=== PATIENT | male | born 1995 | race African-American/Black ===

== ENCOUNTER 2018-11-08 17:22 | Emergency (ER) | payer SELFPAY ==
[2018-11-08 17:41] VITALS: BP 133/82
[2018-11-08] MEDS ORDERED: ACETAMINOPHEN 325 MG TABLET PO ONE (18:12)
[2018-11-08] MEDS ORDERED: IBUPROFEN 600 MG TABLET PO ONE (18:12)
--- NOTE | 2018-11-08 18:35 | RADIOLOGY REPORT (SQ) ---
EXAM DESCRIPTION: WRIST LEFT 3 VIEWS COMPLETED DATE/TIME: 11/08/2018 6:25 pm REASON FOR STUDY: trauma COMPARISON: None. NUMBER OF VIEWS: Three views. TECHNIQUE: AP, lateral, and oblique radiographic images acquired of the left wrist. LIMITATIONS: None. FINDINGS: MINERALIZATION: Normal. BONES: No acute fracture or dislocation. No worrisome bone lesions. Normal alignment. SOFT TISSUES: No soft tissue swelling. No foreign body. OTHER: No other significant finding. IMPRESSION: NEGATIVE STUDY OF THE LEFT WRIST. NO RADIOGRAPHIC EVIDENCE OF ACUTE INJURY. TECHNICAL DOCUMENTATION: JOB ID: [id number] [employer]- All Rights Reserved Reading location - IP/workstation name: [email or web address]
--- NOTE | 2018-11-08 18:35 | RADIOLOGY REPORT (SQ) ---
EXAM DESCRIPTION: HAND LEFT 3 VIEWS COMPLETED DATE/TIME: 11/08/2018 6:25 pm REASON FOR STUDY: trauma COMPARISON: None. EXAM PARAMETERS: NUMBER OF VIEWS: Three views. TECHNIQUE: AP, lateral and oblique radiographic images acquired of the left hand. LIMITATIONS: None. FINDINGS: MINERALIZATION: Normal. BONES: No acute fracture or dislocation. No worrisome bone lesions. JOINTS: No effusions. SOFT TISSUES: No soft tissue swelling. No foreign body. OTHER: No other significant finding. IMPRESSION: NEGATIVE STUDY OF THE LEFT HAND. NO RADIOGRAPHIC EVIDENCE OF ACUTE INJURY. TECHNICAL DOCUMENTATION: JOB ID: [id number] [employer]- All Rights Reserved Reading location - IP/workstation name: [email or web address]
--- NOTE | 2018-11-08 19:04 | ER Document Report ---
HPI - HPI Time Seen by Provider: 11/08/18 17:42 Pain Level: 4 Context: Patient is a 22-year-old male who presents the emergency department with left hand pain. He was playing with his friend and got his left hand slammed in the door twice. The patient is right-handed. This incident happened about 30 minutes prior to arrival. Denies any past medical history. He does not take any medications. - CONSTITUTIONAL Constitutional: DENIES: Fever, Chills - EENT EENT: DENIES: Sore Throat - NEURO Neurology: DENIES: Headache - CARDIOVASCULAR Cardiovascular: DENIES: Chest pain - RESPIRATORY Respiratory: DENIES: Coughing - REPRODUCTIVE Reproductive: DENIES: : - MUSCULOSKELETAL Musculoskeletal: REPORTS: Extremity pain - Left hand/wrist, Swelling - Left hand/wrist. DENIES: Back Pain, Neck Pain - DERM Skin Color: Normal Skin Problems: None Past Medical History - General Information source: Patient - Social History Smoking Status: Current Every Day Smoker Chew tobacco use (# tins/day): No Frequency of alcohol use: Occasional Drug Abuse: None Family History: None Patient has suicidal ideation: No Patient has homicidal ideation: No Renal/ Medical History: Denies: Hx Peritoneal Dialysis Psychiatric Medical History: Reports: Hx Depression - Immunizations Immunizations up to date: Yes Hx Diphtheria, Pertussis, Tetanus Vaccination: Yes Vertical Provider Document - CONSTITUTIONAL Agree With Documented VS: Yes Exam Limitations: No Limitations General Appearance: No Apparent Distress - INFECTION CONTROL TRAVEL OUTSIDE OF THE [place] IN LAST 30 DAYS: No - HEENT HEENT: Atraumatic, Normocephalic, PERRLA - NECK Neck: Normal Inspection - RESPIRATORY Respiratory: Breath Sounds Normal, No Respiratory Distress - CARDIOVASCULAR Cardiovascular: Regular Rate, Regular Rhythm Pulses: Normal: Radial - MUSCULOSKELETAL/EXTREMETIES Musculoskeletal/Extremeties: Tender - Left hand at second, third, and fourth metacarpals and wrist, Edema - Left hand/wrist, Eccymosis - Mild, left hand and wrist. negative: FROM - Decreased range of motion to left wrist and hand - NEURO Level of Consciousness: Awake, Alert, Appropriate - DERM Integumentary: Warm, Dry, No Rash Course - Re-evaluation Re-evalutation: 11/08/18 19:05 There are no fractures noted on patient's x-rays. Vascular compromise noted. Capillary refill less than 3 seconds. Patient is able to flex and extend his digits with no problem. I do not suspect a tendon rupture. He will be sent home with an Jagdeep wrap and splint. Follow-up precautions were given. He is to take ibuprofen and Tylenol for pain relief. He will follow-up with his primary care provider. Verbal discharge instructions were given to the patient. They verbalized understanding. They are stable for discharge. - Vital Signs Vital signs: Temp Pulse Resp BP Pulse Ox 99.3 F 57 L 16 133/82 H 97 11/08/18 17:40 11/08/18 17:40 11/08/18 17:40 11/08/18 17:40 11/08/18 17:40 Procedures - Immobilization Left Hand Pre-Proc Neuro Vasc Exam: Normal Immobilizer type: Jagdeep wrap Performed by: PCT Post-Proc Neuro Vasc Exam: Normal, Unchanged from pre-exam Alignment checked and good: Yes Discharge - Discharge Clinical Impression: Contusion of left hand Qualifiers: Encounter type: initial encounter Qualified Code(s): S60.222A - Contusion of left hand, initial encounter Condition: Stable Disposition: HOME, SELF-CARE Additional Instructions: You were seen today in the emergency department for an injury to your left hand. There is no fractures on your x-ray. If you continue to have pain 1 to 2 weeks after today, please follow-up with your primary care provider to have your hand re-x-rayed. Please take Tylenol 1000 mg and ibuprofen 600 mg every 6 hours for your pain. Please rest your hand, wear an Jagdeep wrap, apply ice (20 minutes on, 20 minutes off), and elevate your wrist to help with any swelling.
== END 2018-11-08 19:57 | disposition home or self-care (01) ==
LOC: ER 17:22
DX: S60.222A Contusion of left hand, initial encounter (principal); S60.212A Contusion of left wrist, initial encounter; W23.0XXA Caught, crushed, jammed, or pinched between moving objects, initial encounter; F17.200 Nicotine dependence, unspecified, uncomplicated
CPT/HCPCS: 99283

== ENCOUNTER 2018-11-09 18:13 | Emergency (ER) | payer SELFPAY ==
[2018-11-09 18:56] VITALS: BP 138/76
--- NOTE | 2018-11-09 20:18 | ER Document Report ---
Addendum entered and electronically signed by VINAY NORWOOD FNP 11/12/18 20:58: Procedures - Immobilization Left Hand Pre-Proc Neuro Vasc Exam: Normal Immobilizer type: Other - Dorsal hand splint Performed by: PCT Post-Proc Neuro Vasc Exam: Normal, Unchanged from pre-exam Alignment checked and good: Yes Original Note: HPI - HPI Time Seen by Provider: 11/09/18 19:57 Pain Level: 3 Context: Patient is a 22-year-old male who presents the emergency department with left hand pain. He was playing with his friend and got his left hand slammed in the door twice. This happened yesterday the patient is right-handed. The patient was seen yesterday here in the emergency, and was placed in an Jagdeep wrap. The patient states that he continues to have pain, and is worried that it is broken. He has not taken any ibuprofen or Tylenol since last night. Patient states that he accidentally banged his left hand on a door today. He is requesting x- rays again. - CONSTITUTIONAL Constitutional: DENIES: Fever, Chills - EENT EENT: DENIES: Sore Throat - NEURO Neurology: DENIES: Headache - CARDIOVASCULAR Cardiovascular: DENIES: Chest pain - RESPIRATORY Respiratory: DENIES: Trouble Breathing - GASTROINTESTINAL Gastrointestinal: DENIES: Abdominal Pain - MUSCULOSKELETAL Musculoskeletal: REPORTS: Extremity pain - Left hand - DERM Skin Color: Normal Skin Problems: None Past Medical History - Social History Smoking Status: Never Smoker Family History: None Patient has suicidal ideation: No Patient has homicidal ideation: No Renal/ Medical History: Denies: Hx Peritoneal Dialysis Psychiatric Medical History: Reports: Hx Depression - Immunizations Immunizations up to date: Yes Hx Diphtheria, Pertussis, Tetanus Vaccination: Yes Vertical Provider Document - CONSTITUTIONAL Agree With Documented VS: Yes Exam Limitations: No Limitations General Appearance: No Apparent Distress - INFECTION CONTROL TRAVEL OUTSIDE OF THE [place] IN LAST 30 DAYS: No - HEENT HEENT: Atraumatic, Normocephalic, PERRLA - RESPIRATORY Respiratory: Breath Sounds Normal, No Respiratory Distress - CARDIOVASCULAR Cardiovascular: Regular Rate, Regular Rhythm Pulses: Normal: Radial - MUSCULOSKELETAL/EXTREMETIES Musculoskeletal/Extremeties: Tender - Left dorsal aspect of hand, Edema - Left hand, Eccymosis - Left hand. negative: FROM - Decreased due to injury - NEURO Level of Consciousness: Awake, Alert, Appropriate Motor/Sensory: No Motor Deficit, No Sensory Deficit - DERM Integumentary: Warm, Dry, No Rash Course - Re-evaluation Re-evalutation: 11/09/18 The patient does not have any health insurance and although he is requesting another x-ray, I explained to the patient that x-rays may not show a fracture at this time, as the patient just had the injury yesterday. I also explained to the patient that since he does not have insurance, I would do not want him to go into financial debt from having a repeat x-rays. The patient also has not taken any ibuprofen and Tylenol. I educated the patient on ibuprofen and Tylenol use for injuries. A splint will be placed on the dorsal aspect of the patient's left hand to help protect his hand from any injuries. He is in agreement with this plan. I still do not suspect the patient has a tendon rupture, or any life-threatening etiology at this time. I have explained to him that he needs to follow-up with orthopedics if his pain is not better in 2 weeks. Verbal discharge instructions were given to the patient. They verbalized understanding. They are stable for discharge. - Vital Signs Vital signs: Temp Pulse Resp BP Pulse Ox 98.4 F 61 16 138/76 H 100 11/09/18 18:55 11/09/18 18:55 11/09/18 18:55 11/09/18 18:55 11/09/18 18:55 Discharge - Discharge Clinical Impression: Left hand pain Condition: Stable Disposition: HOME, SELF-CARE Additional Instructions: You were seen today in the emergency department for left hand pain. Please, please, please take ibuprofen 600 mg and acetaminophen 1000 mg every 6 hours for your pain. This will help you with the swelling. You have also been placed in a splint. Please wear the splint to help protect her hand. Please rest your hand, elevate it above your head, and apply ice (20 minutes on, 20 minutes off) as needed. If you still have pain in your left hand in 2 weeks, please follow- up with orthopedics. Referrals: BRITTANI STAFFORD DO [ACTIVE STAFF] - 11/23/18
== END 2018-11-09 20:33 | disposition home or self-care (01) ==
LOC: ER 18:13
DX: M79.642 Pain in left hand (principal)
CPT/HCPCS: 99282

== ENCOUNTER 2018-11-15 11:29 | Emergency (ER) | payer SELFPAY ==
[2018-11-15 11:32] VITALS: BP 145/74
--- NOTE | 2018-11-15 12:57 | ER Document Report ---
HPI - HPI Patient complains to provider of: left hand pain Time Seen by Provider: 11/15/18 12:38 Onset: Last week Onset/Duration: Sudden Quality of pain: Achy Severity: Mild Pain Level: 1 Context: Patient presents to the emergency department with complaints of left hand pain. Patient reports that last week he slammed his left hand in a car door. He was evaluated for injury here but the x-ray was negative. He reports he was instructed to return here this next week for recheck re-x-ray if it still hurting him. He reports he still having pain. No other complaints such as fever vomiting diarrhea. Associated Symptoms: None Exacerbated by: Denies Relieved by: Denies Similar symptoms previously: Yes Recently seen / treated by doctor: Yes - REPRODUCTIVE Reproductive: DENIES: : Past Medical History - General Information source: Patient - Social History Smoking Status: Unknown if Ever Smoked Family History: None Patient has suicidal ideation: No Patient has homicidal ideation: No Renal/ Medical History: Denies: Hx Peritoneal Dialysis Psychiatric Medical History: Reports: Hx Depression - Immunizations Immunizations up to date: Yes Hx Diphtheria, Pertussis, Tetanus Vaccination: Yes Vertical Provider Document - CONSTITUTIONAL Agree With Documented VS: Yes - INFECTION CONTROL TRAVEL OUTSIDE OF THE [place] IN LAST 30 DAYS: No - HEENT HEENT: Atraumatic, Normocephalic - NECK Neck: Supple - MUSCULOSKELETAL/EXTREMETIES Musculoskeletal/Extremeties: MAEW, FROM, Tender - patient reports pain across the left hand dorsally to 2-3 4 metacarpals. No obvious deformity no swelling good cap refill good radial pulse also complains of pain to his palm in the same area. - NEURO Level of Consciousness: Awake, Alert, Appropriate Motor/Sensory: No Motor Deficit - DERM Integumentary: Warm, Dry Adult Front & Back Diagram: 1 - reports pain dorsally and palm to 2-4 metacarpals. Course - Re-evaluation Re-evalutation: 11/15/18 19:10 Patient was instructed on negative x-ray. Patient was instructed on crush injuries. Instructed to follow-up with orthopedics for continued pain he verbalized understanding to all instructions. - Vital Signs Vital signs: Temp Pulse Resp BP Pulse Ox 98.1 F 56 L 16 145/74 H 99 11/15/18 11:31 11/15/18 11:31 11/15/18 11:31 11/15/18 11:31 11/15/18 11:31 - Diagnostic Test Radiology reviewed: Image reviewed, Reports reviewed - EXAM DESCRIPTION: HAND LEFT 3 VIEWS COMPLETED DATE/TIME: 11/15/2018 1:42 pm REASON FOR STUDY: pain,recheck from recent xray crush injury COMPARISON: 11/08/2018 EXAM PARAMETERS: NUMBER OF VIEWS: Three views. TECHNIQUE: AP, lateral and oblique radiographic images acquired of the left hand. LIMITATIONS: None. FINDINGS: MINERALIZATION: Normal. BONES: No acute fracture or dislocation. No worrisome bone lesions. JOINTS: No effusions. SOFT TISSUES: No soft tissue swelling. No foreign body. OTHER: No other significant finding. IMPRESSION: NEGATIVE STUDY OF THE LEFT HAND. NO RADIOGRAPHIC EVIDENCE OF ACUTE INJURY. COMMENT: Please note: 2 of the images are marked right, but as they are displayed they appear to represent the left hand. Discharge - Discharge Clinical Impression: Crushing injury of left hand Qualifiers: Encounter type: subsequent encounter Qualified Code(s): S67.22XD - Crushing injury of left hand, subsequent encounter Condition: Stable Disposition: HOME, SELF-CARE Instructions: Crush Injury ([facility]), Use of [facility] Ibuprofen ([facility]) Additional Instructions: *You have been evaluated for left hand pain, crush injury *The x-ray of your hand did not show an acute injury *Rest/Ice/Elevate your hand *take ibuprofen as indicated *Follow up with orthopedics this week for evaluation *Return to ED for worsening condition, changes, needs Forms: Elevated Blood Pressure Referrals: [facility] [Provider Group] - Follow up in 3-5 days MAYRA CHEUNG MD [ASSOCIATE] - Follow up in 3-5 days
--- NOTE | 2018-11-15 13:53 | RADIOLOGY REPORT (SQ) ---
EXAM DESCRIPTION: HAND LEFT 3 VIEWS COMPLETED DATE/TIME: 11/15/2018 1:42 pm REASON FOR STUDY: pain,recheck from recent xray crush injury COMPARISON: 11/08/2018 EXAM PARAMETERS: NUMBER OF VIEWS: Three views. TECHNIQUE: AP, lateral and oblique radiographic images acquired of the left hand. LIMITATIONS: None. FINDINGS: MINERALIZATION: Normal. BONES: No acute fracture or dislocation. No worrisome bone lesions. JOINTS: No effusions. SOFT TISSUES: No soft tissue swelling. No foreign body. OTHER: No other significant finding. IMPRESSION: NEGATIVE STUDY OF THE LEFT HAND. NO RADIOGRAPHIC EVIDENCE OF ACUTE INJURY. COMMENT: Please note: 2 of the images are marked right, but as they are displayed they appear to re present the left hand. TECHNICAL DOCUMENTATION: JOB ID: [id number] [employer]- All Rights Reserved Reading location - IP/workstation name: [email or web address]
== END 2018-11-15 14:19 | disposition home or self-care (01) ==
LOC: ER 11:29
DX: S67.22XD Crushing injury of left hand, subsequent encounter (principal); M79.642 Pain in left hand; W23.0XXD Caught, crushed, jammed, or pinched between moving objects, subsequent encounter
CPT/HCPCS: 99283

== ENCOUNTER 2019-01-18 06:36 | Emergency (ER) | payer SELFPAY ==
[2019-01-18 06:48] VITALS: BP 134/64
--- NOTE | 2019-01-18 06:58 | ER Document Report ---
ED General - General Chief Complaint: Eye Problem Stated Complaint: VOMITING Time Seen by Provider: 01/18/19 06:48 Notes: 23-year-old male comes in with vague complaints. Patient stated that his eye felt scratchy the last 2 days he really has not noticed much redness. Denies nasal congestion fever chills. States he throws up in the morning every now and then which is not abnormal for him but he states he saw some streaks of red the last 2 days. He denies any abdominal pain. Denies any falls or trauma. Patient states he needs a work note to be sure he does not have pinkeye. TRAVEL OUTSIDE OF THE [place] IN LAST 30 DAYS: No - Related Data Allergies/Adverse Reactions: Sulfa (Sulfonamide Antibiotics) Adverse Reaction (Verified 04/26/16 10:58) Hives Past Medical History - Social History Smoking Status: Unknown if Ever Smoked Family History: None Renal/ Medical History: Denies: Hx Peritoneal Dialysis Psychiatric Medical History: Reports: Hx Depression Past Surgical History: Reports: Hx Orthopedic Surgery - R elbow - Immunizations Immunizations up to date: Yes Hx Diphtheria, Pertussis, Tetanus Vaccination: Yes Review of Systems - Review of Systems Constitutional: denies: Chills, Fever EENT: Eye pain, Nose congestion Cardiovascular: denies: Chest pain, Dyspnea Respiratory: denies: Cough, Short of breath Gastrointestinal: Nausea, Vomiting Skin: denies: Rash -: Yes All other systems reviewed and negative Physical Exam - Vital signs Vitals: Temp Pulse Resp BP Pulse Ox 97.8 F 66 15 134/64 H 99 01/18/19 06:46 01/18/19 06:46 01/18/19 06:46 01/18/19 06:46 01/18/19 06:46 - Notes Notes: GENERAL_APPEARANCE: well_nourished, alert, cooperative, no_acute_distress, no_obvious_discomfort. VITALS: reviewed, see vital signs table. HEAD: no_swelling\tenderness on the head. EYES: PERRL, EOMI, conjunctiva_clear. NOSE: no_nasal_discharge. MOUTH: (-)decreased moisture. THROAT: no_tonsilar_inflammation, no_airway_obstruction. no_lymphadenopathy NECK: supple, no_neck_tenderness, (-)thyromegaly. BACK: no_back_tenderness. SKIN: warm, dry, good_color, no_rash. MENTAL_STATUS: speech_clear, oriented_X_3, normal_affect, responds_appropriately to questions. Course - Re-evaluation Re-evalutation: 01/18/19 06:56 23-year-old male who comes in complaining about his left eye. Honestly I do not see any conjunctival injection no Dacrocystitis. He does not wear contacts. He has good light reflex. He has no history of any injury here. The patient also complained of a few specks of what he described as bright red blood in emesis. He states he throws up often however the last couple days he usually throws up in the morning. The patient has a wide open Mallampati 1 airway. I did not see any signs of any bleeding in his nose or around his tonsils. However this may be the cause of some of this when he wakes up he states he has a lot of phlegm. And that that makes him vomit. I spoke with him about allergies he denies having any allergies. I spoke with the patient he may try an ghdl-[id number]-raymgbg antihistamine. However really do not believe he has any kind of pinkeye. His abdomen is soft and supple my exam no rebound or guarding nothing to suggest any kind of intra-abdominal pathology. I do not think any further screening is needed. - Vital Signs Vital signs: Temp Pulse Resp BP Pulse Ox 97.8 F 66 15 134/64 H 99 01/18/19 06:46 01/18/19 06:46 01/18/19 06:46 01/18/19 06:46 01/18/19 06:46 Discharge - Discharge Clinical Impression: Eye irritation Vomiting Qualifiers: Vomiting type: unspecified Nausea presence: with nausea Condition: Good Disposition: HOME, SELF-CARE Instructions: Vomiting ([facility]) Additional Instructions: On my exam you do not have pinkeye. This may just be generalized irritation. If it gets worse follow-up with your family doctor return to urgent care. Forms: Return to School
== END 2019-01-18 07:15 | disposition home or self-care (01) ==
LOC: ER 06:36
DX: H57.12 Ocular pain, left eye (principal); R11.2 Nausea with vomiting, unspecified; R09.81 Nasal congestion
CPT/HCPCS: 99283

== ENCOUNTER 2019-11-21 09:03 | Emergency (ER) | payer SELFPAY ==
[2019-11-21 09:10] VITALS: BP 153/81
--- NOTE | 2019-11-21 09:21 | ER Document Report ---
ED Medical Screen (RME) - General Chief Complaint: Testicular Pain Stated Complaint: ABDOMINAL PAIN Time Seen by Provider: 11/21/19 09:17 Mode of Arrival: Ambulatory Information source: Patient Notes: 23-year-old male presented to ED for complaint of scrotal pain pain for 4-week with no redness or swelling. 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 I have greeted and performed a rapid initial assessment of this patient. A comprehensive ED assessment and evaluation of the patient, analysis of test results and completion of medical decision making process will be conducted by an additional ED providers. TRAVEL OUTSIDE OF THE [place] IN LAST 30 DAYS: No - Related Data Allergies/Adverse Reactions: Sulfa (Sulfonamide Antibiotics) Adverse Reaction (Verified 04/26/16 10:58) Hives Past Medical History - Social History Frequency of alcohol use: Social Drug Abuse: None Renal/ Medical History: Denies: Hx Peritoneal Dialysis Psychiatric Medical History: Reports: Hx Depression Past Surgical History: Reports: Hx Orthopedic Surgery - R elbow - Immunizations Immunizations up to date: Yes Hx Diphtheria, Pertussis, Tetanus Vaccination: Yes Physical Exam - Vital signs Vitals: Temp Pulse Resp BP Pulse Ox 97.7 F 63 16 153/81 H 99 11/21/19 09:07 11/21/19 09:07 11/21/19 09:07 11/21/19 09:07 11/21/19 09:07 Course - Vital Signs Vital signs: Temp Pulse Resp BP Pulse Ox 97.7 F 63 16 153/81 H 99 11/21/19 09:10 11/21/19 09:07 11/21/19 09:07 11/21/19 09:07 11/21/19 09:07
[2019-11-21 09:40] LABS: APPEARANCE,URINE CLEAR; BILIRUBIN,URINE NEGATIVE (NEGATIVE); COLOR,URINE YELLOW; GLUCOSE, URINE NEGATIVE (NEGATIVE); KETONES,URINE NEGATIVE (NEGATIVE); LEUKOCYTE ESTERASE,URINE NEGATIVE (NEGATIVE); NITRITE,URINE NEGATIVE (NEGATIVE); PROTEIN,URINE NEGATIVE (NEGATIVE)
--- NOTE | 2019-11-21 10:42 | RADIOLOGY REPORT (SQ) ---
EXAM DESCRIPTION: U/S SCROTUM W/O DOPPLER IMAGES COMPLETED DATE/TIME: 11/21/2019 10:21 am REASON FOR STUDY: pain swelling COMPARISON: None. TECHNIQUE: Static and realtime santillan scale imaging of the scrotum and testes. Selected color Doppler and spectral images recorded to document blood flow. LIMITATIONS: None. FINDINGS: RIGHT: TESTICLE: Normal size. Normal echotexture. Normal blood flow. No mass. EPIDIDYMIS: Normal. HYDROCELE OR VARICOCELE: Minimal hydrocele. Small varicocele. HERNIA OR EXTRA-TESTICULAR MASS: No. LEFT: TESTICLE: Normal size. Normal echotexture. Normal blood flow. No mass. EPIDIDYMIS: Normal. HYDROCELE OR VARICOCELE: Minimal hydrocele. Small varicocele. HERNIA OR EXTRA-TESTICULAR MASS: No. OTHER: Scrotal wall thickening. IMPRESSION: 1. SCROTAL WALL THICKENING. MINIMAL HYDROCELES AND SMALL VARICOCELES. 2. NORMAL TESTICULAR ULTRASOUND. NO EVIDENCE OF TESTICULAR MASS OR TORSION. TECHNICAL DOCUMENTATION: JOB ID: [id number] 2010 [employer]- All Rights Reserved Reading location - IP/workstation name: [email or web address]
[2019-11-21 11:04] LABS: CHLAM PCR DETECTED (NOT DETECT)
--- NOTE | 2019-11-21 11:38 | ER Document Report ---
Entered by ISAK MCCONNELL SCRIBE 11/21/19 1054 Acting as scribe for:ADELA WOLFE MD ED General - General Chief Complaint: Testicular Pain Stated Complaint: ABDOMINAL PAIN Time Seen by Provider: 11/21/19 09:17 Mode of Arrival: Ambulatory Information source: Patient Notes: This 23-year-old male presents to the emergency department complaining of scrotum pain that started about a week ago. Patient explains that the pain could be one-sided and switch to the other side. Patient states that his pain is worse in the morning and after urination he feels better. Patient denies associated swelling or redness. Patient mentions that he has had chlamydia in the past and expresses that this pain is similar. Patient states that he is suspicious of STD due to unprotected sexual activity recently. Patient reports rhinorrhea due to allergies. Patient denies fever, chills, nausea, vomiting, covid-19 exposure and recent travel. TRAVEL OUTSIDE OF THE [place] IN LAST 30 DAYS: No - Related Data Allergies/Adverse Reactions: Sulfa (Sulfonamide Antibiotics) Adverse Reaction (Verified 04/26/16 10:58) Hives Past Medical History - General Information source: Patient - Social History Smoking Status: Current Every Day Smoker Cigarette use (# per day): Yes Chew tobacco use (# tins/day): No Frequency of alcohol use: Social Drug Abuse: None Family History: None Patient has homicidal ideation: No Psychiatric Medical History: Reports: Hx Depression Traumatic Medical History: Reports: Hx Fractures - Knee and both thumbs Past Surgical History: Reports: Hx Orthopedic Surgery - R elbow - Immunizations Immunizations up to date: Yes Hx Diphtheria, Pertussis, Tetanus Vaccination: Yes Review of Systems - Review of Systems Constitutional: See HPI. denies: Chills, Fever EENT: See HPI, Nose discharge. denies: Throat pain Cardiovascular: No symptoms reported Respiratory: No symptoms reported Gastrointestinal: See HPI. denies: Nausea, Vomiting Genitourinary: See HPI, Dysuria Male Genitourinary: See HPI, Testicular pain Musculoskeletal: No symptoms reported Skin: No symptoms reported Hematologic/Lymphatic: No symptoms reported Neurological/Psychological: No symptoms reported -: Yes All other systems reviewed and negative Physical Exam - Vital signs Vitals: Temp Pulse Resp BP Pulse Ox 97.7 F 63 16 153/81 H 99 11/21/19 09:07 11/21/19 09:07 11/21/19 09:07 11/21/19 09:07 11/21/19 09:07 - Notes Notes: Physical Exam: General: Alert, appears well. HEENT: Normocephalic. Atraumatic. PERRL. Extraocular movements intact. Oropharynx clear. Neck: Supple. Non-tender. Respiratory: No respiratory distress. Clear and equal breath sounds bilaterally. Cardiovascular: Regular rate and rhythm. Abdominal: Normal Inspection. Non-tender. No distension. Normal Bowel Sounds. Male Genitourinary: Normal. Non-tender. No signs of inguinal hernia or discharge. Circumcised. Back: No gross abnormalities. Extremities: Moves all four extremities. Upper extremities: Normal inspection. Normal ROM. Lower extremities: Normal inspection. No edema. Normal ROM. Neurological: Normal cognition. AAOx4. Normal speech. Psychological: Normal affect. Normal Mood. Skin: Warm. Dry. Normal color. Course - Re-evaluation Re-evalutation: 11/21/19 11:31 Patient resting comfortably showing no signs of distress. - Vital Signs Vital signs: Temp Pulse Resp BP Pulse Ox 97.7 F 63 16 153/81 H 99 11/21/19 09:10 11/21/19 09:07 11/21/19 09:07 11/21/19 09:07 11/21/19 09:07 11/21/19 11:31 Vital signs stable - Laboratory Laboratory results interpreted by ak: 11/21/19 11/21/19 09:20 09:20 Urine Urobilinogen 2.0 H Chlamydia DNA (PCR) DETECTED H 11/21/19 11:32 Urine lab results shows chlamydia detected. Gonorrhea negative. - Diagnostic Test Radiology reviewed: Image reviewed, Reports reviewed Radiology results interpreted by me: 11/21/19 11:32 Ultrasound scrotum scrotum disclose no acute process patient has a minimal small varicoceles hydroceles no other acute process noted. There was no torsion. Discharge - Discharge Clinical Impression: Chlamydia infection, Sexually transmitted disease in male Condition: Stable Disposition: HOME, SELF-CARE Additional Instructions: Chlamydia You have a chlamydia infection. Chlamydia is a germ that grows inside the cells of the mucous membranes. It often infects the eyes, urethra, and fallopian tubes. It can cause chronic pain and scar tissue if untreated. Antibiotics are used to treat chlamydia. It's important to take all the medicine even if there are no symptoms. Use condoms to prevent spread of the infection. Because this infection can spread by sexual contact, it's important that your sexual partner be checked before resuming sexual relations. A positive test for chlamydia has to be reported to the health department. Call the doctor or return at once if you develop increasing fever, rash, severe pelvic pain, vaginal bleeding (other than your period), or problems with your bladder or bowels. Prescriptions: Azithromycin [Zithromax 1 gm Susp Packet] 1 gm PO ONCE 1 Days #1 packet I personally performed the services described in the documentation, reviewed and edited the documentation which was dictated to the scribe in my presence, and it accurately records my words and actions.
== END 2019-11-21 11:50 | disposition home or self-care (01) ==
LOC: ER 09:03
DX: A56.8 Sexually transmitted chlamydial infection of other sites (principal); I86.1 Scrotal varices; N43.3 Hydrocele, unspecified; T78.40XA Allergy, unspecified, initial encounter; J34.89 Other specified disorders of nose and nasal sinuses; X58.XXXA Exposure to other specified factors, initial encounter; F17.210 Nicotine dependence, cigarettes, uncomplicated
CPT/HCPCS: 76870; 81001; 87086; 87491; 87591; 99284

== ENCOUNTER 2019-12-05 17:20 | Emergency (ER) | payer SELFPAY ==
--- NOTE | 2019-12-05 17:37 | ER Document Report ---
ED Hand/Wrist Injury - General Chief Complaint: Hand Injury Stated Complaint: FALL/RIGHT HAND PAIN Time Seen by Provider: 12/05/19 17:23 Primary Care Provider: BRITTANI STAFFORD DO [ACTIVE STAFF] - Follow up as needed Mode of Arrival: Ambulatory Information source: Patient Notes: 23-year-old male presented to ED for complaint of right thumb and hand pain. He states on Thursday he was horsing around when he injured his right hand. He states it is now painful and swollen is very painful to move the right thumb. He states he has broken his right thumb 3 times and left thumb twice in the past. He has had jaw surgery in the past. He also has a history of depression. He is alert oriented respirations regular and unlabored speaking in full sentences. TRAVEL OUTSIDE OF THE [place] IN LAST 30 DAYS: No - HPI Injury to: Hand, Thumb Onset: Other - Thursday Where: Outdoors Timing: Still present, Worse Quality of pain: Sharp Severity: Moderate Pain Level: 2 Context: Swelling - Related Data Allergies/Adverse Reactions: Sulfa (Sulfonamide Antibiotics) Adverse Reaction (Verified 12/05/19 17:26) Hives Home Medications: denies Past Medical History - General Information source: Patient - Social History Smoking Status: Current Every Day Smoker Cigarette use (# per day): Yes - 4 cigarettes a day Chew tobacco use (# tins/day): No Smoking Education Provided: Yes - 4 minutes Frequency of alcohol use: Social Drug Abuse: None Family History: None, Reviewed & Not Pertinent Patient has homicidal ideation: No - Past Medical History Cardiac Medical History: Reports: None Pulmonary Medical History: Reports: None EENT Medical History: Reports: None Neurological Medical History: Reports: None Endocrine Medical History: Reports: None Renal/ Medical History: Reports: None Malignancy Medical History: Reports None GI Medical History: Reports: None Musculoskeletal Medical History: Reports Hx Musculoskeletal Trauma Skin Medical History: Reports None Psychiatric Medical History: Reports: Hx Depression - childhood Traumatic Medical History: Reports: Hx Fractures - Knee and both thumbs and jaw Past Surgical History: Reports: Hx Oral Surgery - jaw, Hx Orthopedic Surgery - R elbow - Immunizations Immunizations up to date: Yes Hx Diphtheria, Pertussis, Tetanus Vaccination: Yes Review of Systems - Review of Systems Constitutional: No symptoms reported EENT: No symptoms reported Cardiovascular: No symptoms reported Respiratory: No symptoms reported Gastrointestinal: No symptoms reported Genitourinary: No symptoms reported Male Genitourinary: No symptoms reported Musculoskeletal: Other - Right hand and thumb pain and swelling decreased range of motion Skin: No symptoms reported Hematologic/Lymphatic: No symptoms reported Neurological/Psychological: No symptoms reported -: Yes All other systems reviewed and negative Physical Exam - Vital signs Vitals: Temp Pulse Resp BP Pulse Ox 97.6 F 71 16 153/90 H 99 12/05/19 17:27 12/05/19 17:27 12/05/19 17:27 12/05/19 17:27 12/05/19 17:27 Interpretation: Normal - General General appearance: Appears well, Alert - HEENT Head: Normocephalic, Atraumatic Eyes: Normal Pupils: PERRL - Respiratory Respiratory status: No respiratory distress Chest status: Nontender Breath sounds: Normal Chest palpation: Normal - Cardiovascular Rhythm: Regular Heart sounds: Normal auscultation Murmur: No - Abdominal Inspection: Normal Distension: No distension Bowel sounds: Normal Tenderness: Nontender Organomegaly: No organomegaly - Back Back: Normal, Nontender - Extremities General upper extremity: Normal color, Normal temperature General lower extremity: Normal inspection, Nontender, Normal color, Normal ROM, Normal temperature, Normal weight bearing. No: Joyce's sign Hand: Tender, Ecchymosis, No evidence of human bite, No evidence of FB, Swelling, Other - Decreased range of motion to the right thumb due to pain - Neurological Neuro grossly intact: Yes Cognition: Normal Orientation: AAOx4 [place] Coma Scale Eye Opening: Spontaneous David Coma Scale Verbal: Oriented David Coma Scale Motor: Obeys Commands David Coma Scale Total: 15 Speech: Normal Motor strength normal: LUE, RUE, LLE, RLE Sensory: Normal - Psychological Associated symptoms: Normal affect, Normal mood - Skin Skin Temperature: Warm Skin Moisture: Dry Skin Color: Normal Course - Re-evaluation Re-evalutation: 12/05/19 22:01 Hand x-ray showed no radiological evidence of acute injury to the hand or thumb. Patient was able to move the thumb much better after the x-rays were complete. He did state he would take some Tylenol or Motrin at home. He was instructed to follow-up with orthopedics if he did continue to have pain. Patient verbalized understanding and agreement with treatment plan patient was discharged home - Vital Signs Vital signs: Temp Pulse Resp BP Pulse Ox 97.6 F 72 16 141/69 H 99 12/05/19 17:28 12/05/19 18:26 12/05/19 18:26 12/05/19 18:26 12/05/19 17:27 - Diagnostic Test Radiology reviewed: Image reviewed, Reports reviewed Discharge - Discharge Clinical Impression: Pain of right thumb Condition: Stable Disposition: HOME, SELF-CARE Additional Instructions: You were seen today for pain in your right hand and thumb. You state you did not fall but the pain has been since Thursday. Your x-ray does not show any radiological injuries. That means there does not show any broken bones on the x-ray. Ibuprofen Ibuprofen is an excellent, safe drug for pain control. In addition, it has potent antiinflammatory effects which are beneficial, especially in the treatment of injuries, arthritis, or tendonitis. It's best to take ibuprofen with food. Persons with ulcer disease or allergy to aspirin should notify their physician of this before taking ibuprofen. Take the medication exactly as prescribed. Don't take additional doses unless instructed to do so by your doctor. If you develop wheezing, shortness of breath, hives, faintness, stomach pain, vomiting, or dark black stools, return for re-evaluation at once. Ice & Elevation Apply ice packs frequently against the painful area. Many different schedules are recommended, such as "20 minutes on, 20 minutes off" or "one hour ice, two hours rest." If you need to work, you may need to go longer between ice treatments. You should plan to have the area ice packed AT LEAST one-fourth of the time. The ice should be applied over the wrap, tape, or splint, or over a layer of cloth -- not directly against the skin. Some ice bags have a built-in cloth and can be put directly on the skin. Your injured part should be elevated as much as possible over the next 48 hours. Try to keep the injury above the level of the heart. Avoid use of the injured area. Elevation and rest will decrease the swelling. FOLLOW-UP CARE: If you have been referred to a physician for follow-up care, call the physicians office for an appointment as you were instructed or within the next two days. If you experience worsening or a significant change in your symptoms, notify the physician immediately or return to the Emergency Department at any time for re-evaluation. Forms: Elevated Blood Pressure, Smoking Cessation Education, Return to Work Referrals: BRITTANI STAFFORD, [ACTIVE STAFF] - Follow up as needed
--- NOTE | 2019-12-05 17:50 | RADIOLOGY REPORT (SQ) ---
EXAM DESCRIPTION: HAND RIGHT 3 VIEWS IMAGES COMPLETED DATE/TIME: 12/05/2019 5:38 pm REASON FOR STUDY: fall pain swelling decreased rom COMPARISON: None. EXAM PARAMETERS: NUMBER OF VIEWS: Three views. TECHNIQUE: AP, lateral and oblique radiographic images acquired of the right hand. LIMITATIONS: None. FINDINGS: MINERALIZATION: Normal. BONES: No acute fracture or dislocation. No worrisome bone lesions. JOINTS: No effusions. SOFT TISSUES: No soft tissue swelling. No foreign body. OTHER: No other significant finding. IMPRESSION: NEGATIVE STUDY OF THE RIGHT HAND. NO RADIOGRAPHIC EVIDENCE OF ACUTE INJURY. TECHNICAL DOCUMENTATION: JOB ID: [id number] 2010 [employer]- All Rights Reserved Reading location - IP/workstation name: [email or web address]
[2019-12-05] MEDS ORDERED: IBUPROFEN 800 MG TABLET PO ONE (18:22)
[2019-12-05 18:28] VITALS: BP 141/69
== END 2019-12-05 18:17 | disposition home or self-care (01) ==
LOC: ER 17:20
DX: M79.644 Pain in right finger(s) (principal); S60.229A Contusion of unspecified hand, initial encounter; M79.641 Pain in right hand; M79.89 Other specified soft tissue disorders; W19.XXXA Unspecified fall, initial encounter; Y93.83 Activity, rough housing and horseplay; F17.210 Nicotine dependence, cigarettes, uncomplicated; Z87.81 Personal history of (healed) traumatic fracture
CPT/HCPCS: 99283